=== PATIENT | female | born 1970 | race Caucasian/White ===

== ENCOUNTER 2017-12-13 22:24 | Inpatient (IN) | payer OTHER ==
[~2017-12-13] VITALS: Ht 162.6 cm; Wt 143.1 kg
[~2017-12-13 22:24] MED LIST: ABILIFY5 M1 PO; HYDRODIURIL 112.5 MG PO; LISINOPRIL-HCT1 EACH PO; LISINOPRIL10 MG PO; LOVASTATIN40 M1 PO; LOVASTATIN40 MG PO; MULTIVITAMIN1 TAB PO; PRISTIQ ER50 MG PO
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
[2017-12-13 23:04] LABS: ABSOLUTE BASOPHIL COUNT 0.1 /CUMM (0.0-0.2); ABSOLUTE EOSINOPHIL COUNT 0.1 /CUMM (0.0-0.7); ABSOLUTE GRANULOCYTE CT 5.6 /CUMM (1.4-6.5); ABSOLUTE LYMPH COUNT 3.6 /CUMM (1.2-3.4); ABSOLUTE MONOCYTE COUNT 0.9 /CUMM (0.10-0.60); EOSINOPHIL % 0.9 % (0-5); GRANULOCYTE % 54.6 % (42.2-75.2); HEMATOCRIT 47.7 % (37-47); MEAN CORPUSCULAR HGB 28.9 PG (27.0-31.0); MEAN CORPUSCULAR HGB CONC 32.7 G/DL (33.0-37.0); MEAN CORPUSCULAR VOLUME 88.3 FL (81.0-99.0); MEAN PLATELET VOLUME 8.3 FL (7.4-10.4); PLATELET COUNT 290 /CUMM (130-400); RBC DISTRIBUTION WIDTH 14.4 % (11.5-14.5); WHITE BLOOD CELL COUNT 10.3 /CUMM (4.8-10.8)
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
--- NOTE | 2017-12-14 09:23 | CT SCAN REPORT ---
EXAMINATION: CT HEAD WITHOUT CONTRAST CLINICAL INFORMATION: ALTERED MENTAL STATUS, OLFACTORY HALLUCINATIONS COMPARISON: None TECHNIQUE: Contiguous axial imaging was performed from the skull base to vertex without intravenous administration of contrast. DLP: 614.99 mGy-cm FINDINGS: There is no evidence of acute intracranial hemorrhage or territorial infarction. There is a small focus of low attenuation in the lateral right thalamus that may represent a chronic lacunar infarction. There is mild small vessel ischemic disease. No abnormal mass effect or midline shift is seen. [place] to white matter differentiation is well preserved. No extra-axial fluid collections are identified. The ventricles are normal in size. The osseous structures and soft tissues are normal. The mastoid air cells and visualized portions of the paranasal sinuses are well aerated. IMPRESSION: No acute intracranial pathology. There is a small focus of low attenuation in the lateral right thalamus that may represent a chronic lacunar infarction. There is mild small vessel ischemic disease.
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
[2017-12-14] MEDS ORDERED: ATORVASTATIN CA40 M1 PO (11:03)
[2017-12-14] MEDS ORDERED: LISINOPRIL20 M1 PO (11:03)
[2017-12-14] MEDS ORDERED: AMLODIPINE BESY10 M1 PO (11:03)
[2017-12-14] MEDS ORDERED: MIRTAZAPINE15 M2 PO (11:04)
[2017-12-14] MEDS ORDERED: VITAMIN D31000 UNI2 PO (11:05)
[2017-12-14 14:18] VITALS: BP 143/99
[2017-12-14] MEDS ORDERED: NORVASC10 M1 PO (15:48)
[2017-12-14] MEDS ORDERED: HYDROXYZINE HCL25 M3 PO (16:03)
--- NOTE | 2017-12-14 18:24 | History & Physical ---
General Information and HPI MD Statement: I have seen and personally examined SALMA SAXENA and documented this H&P. The patient is a 47 year old F who presented with a patient stated chief complaint of "I came in last night because I was concerned somebody was following me ". Source of Information: patient, EMS Exam Limitations: unable to give history History of Present Illness: 47-year-old white female was brought in by ambulance for increased paranoia. Patient feels like somebody is following her. She said she has been compliant with her medications. The symptoms have gotten worse in the last month having auditory hallucinations visual hallucinations and paranoia for all these reasons patient is admitted for evaluation and treatment Allergies/Medications Allergies: Uncoded Allergies: STEROID (EYES HURT PER PT 07/29/15) Home Med list Amlodipine Besylate 10 MG TABLET 1 TAB PO DAILY HEART (Reported) Aripiprazole (Abilify) 5 MG TABLET 6 TAB PO DAILY MENTAL HEALTH (Reported) Atorvastatin Calcium 40 MG TABLET 1 TAB PO DAILY CHOLESTEROL (Reported) Cholecalciferol (Vitamin D3) 1,000 UNIT TABLET 1 TAB PO DAILY VITAMIN SUPPORT (Reported) Desvenlafaxine Succinate (Pristiq ER) 50 MG TAB.ER.24H 1 TAB PO DAILY MENTAL HEALTH (Reported) Hydroxyzine HCl (hydrOXYzine HCl) 25 MG TABLET 1 TAB PO AT BEDTIME MENTAL HEALTH (Reported) Lisinopril 20 MG TABLET 1 TAB PO DAILY HEART (Reported) Mirtazapine 15 MG TABLET 1 TAB PO QPM SLEEP (Reported) Compliance With Home Meds: UNKNOWN Past History Travel History Traveled to [place] past 21 day No Medical History Neurological: NONE EENT: allergies Cardiovascular: hypertension, hyperlipidemia Respiratory: NONE Gastrointestinal: NONE Hepatic: NONE Renal: NONE Musculoskeletal: NONE Psychiatric: anxiety, depression, insomnia Endocrine: NONE Blood Disorders: NONE, 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 Home ETOH Use: denies use Illicit Drug Use: denies illicit drug use Review of Systems Review of Systems Constitutional: Reports: see HPI. Exam & Diagnostic Data Last 24 Hrs of Vital Signs/I&O Vital Signs Date Time Temp Pulse Resp B/P B/P Pulse O2 O2 Flow FiO2 Mean Ox Delivery Rate 12/14 1418 97.8 80 143/99 12/14 1354 98.6 83 18 143/94 98 Room Air Room Air 12/14 1206 98.1 83 19 160/95 97 Room Air 12/14 1050 97.8 90 18 138/90 96 Room Air Room Air 12/14 0933 98.1 99 18 144/89 12/14 0915 98.2 99 18 153/93 98 / 0653 98.1 99 18 144/89 98 Room Air 12/14 0207 98.6 104 20 169/89 96 Room Air 12/14 0010 98.4 100 18 145/78 98 Room Air 12/13 2234 98.2 97 19 157/94 96 Room Air 12/13 2233 Room Air Intake & Output 12/14 1600 12/14 0800 08 0000 Intake Total Output Total Balance Patient 315 lb 200 lb Weight Weight Estimated Measurement Method Physical Exam General Appearance Alert, Oriented X3, Cooperative, No Acute Distress Skin No Rashes, Hirtusism specially on face. HEENT PERRLA, EOMI, Mucous Membr. moist/pink Neck Supple, No JVD, No thryomegaly, +2 Carotid Pulse wo Bruit Lymphatic Axillary nl, Cervical nl Cardiovascular Regular Rate, No Murmurs Lungs Clear to Auscultation, Normal Air Movement Abdomen Soft, No Tenderness, No Hepatospenomegaly Neurological Exam Findings: Normal Gait, Normal Speech, Strength at 5/5 X4 Ext, Normal Tone, Sensation Intact, Cranial Nerves 3-12 NL, Reflexes 2+ Cranial Nerves II through XII: intact. Extremities No Edema, Normal Pulses Vascular Normal Pulses, Pulses Symmetrical Last 24 Hrs of Labs/Rancho: Laboratory Tests 12/13/17 2300: Urine Opiates Screen < 100, Methadone Screen < 40, Barbiturate Screen < 60, Ur Phencyclidine Scrn < 6.00, Amphetamines Screen < 100, U Benzodiazepines Scrn < 85, Urine Cocaine Screen < 50, Urine Cannabis Screen < 5.00, Urine Color SHOLA, Urine Clarity CLDY H, Urine pH 6.0, Ur Specific [place] >= 1.030, Urine Protein 30 H, Urine Ketones TRACE H, Urine Nitrite NEG, Urine Bilirubin NEG@ICTO, Urine Urobilinogen 1.0, Ur Leukocyte Esterase NEG, Ur Microscopic SEDIMENT EXAMINED, Urine RBC RARE, Urine WBC 3-5 H, Ur Epithelial Cells MOD H, Urine Bacteria MOD H, Urine Mucus FEW, Urine Hemoglobin NEG, Urine Glucose NEG 12/13/17 2257: Anion Gap 10, Estimated GFR > 60, BUN/Creatinine Ratio 21.4, Glucose 122 H, Hemoglobin A1c 6.5 H, Calcium 10.0, Total Bilirubin 0.6, AST 40 H, ALT 62 H, Alkaline Phosphatase 108, Total Protein 7.9, Albumin 4.6, Globulin 3.3, Albumin/ Globulin Ratio 1.4, Triglycerides 100, Cholesterol 158, LDL Cholesterol, Calc 90 , HDL Cholesterol 48, Cholesterol/HDL Ratio 3, Free T4 1.77, Total T3 1.65, TSH &T3 &Free T4 Intrp 4.810 H, Total Beta HCG NEGATIVE, CBC w Diff NO MAN DIFF REQ , RBC 5.40, MCV 88.3, MCH 28.9, MCHC 32.7 L, RDW 14.4, MPV 8.3, Gran % 54.6, Lymphocytes % 35.2, Monocytes % 8.3, Eosinophils % 0.9, Basophils % 1.0, Absolute Granulocytes 5.6, Absolute Lymphocytes 3.6 H, Absolute Monocytes 0.9 H, Absolute Eosinophils 0.1, Absolute Basophils 0.1, Serum Alcohol < 10.0 Assessment/Plan As Ranked By This Provider Problem List: 1. Paranoia 2. Obesity 3. Schizophrenia Miscellaneous Miscellaneous Documentation Attending Case Discussed With: Mauricio Varela MD Primary Care Physician: Musa Helton MD Patient sees these Specialists psych. Level of Patient Care: [facility] Consults Needed: Consulting Specialty: Psychiatry Consulting Physician: Dr. Varela Reason for Consult: paranoia schyzophrenia Attending MD Review Statement Attending Statement Attending MD Statement: examined this patient
[2017-12-14 19:32] VITALS: BP 150/87
[2017-12-15 08:11] VITALS: BP 116/49
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
[2017-12-15 18:12] VITALS: BP 114/82
[2017-12-15 19:36] VITALS: BP 148/87
[2017-12-16 07:49] VITALS: BP 110/82
--- NOTE | 2017-12-16 14:18 | CP SOUTH PROGRESS NOTE PSYCH ---
Psych (Inpt) Progress Note Progress Note Include the following elements, when applicable: Involvement in the active treatment of the patient with behavioral observations of the patient and the patient's response to the treatment. Review of the ongoing treatment process in the context of the treatment plan. Indication of how multi-disciplinary staff members are carrying out the treatment plan. Plans for future interventions and recommendations for revision of the treatment plan. Liaison with other physicians/providers. Progress Note: Case and treatment plan discussed in team meeting. Staff reports that the patient is denying SI. Isolated last evening. Patient seen at 1:51 pm. She was in group prior to meeting with me in office. Feeling a little better. Reports her anxiety levels have decreased. "When I came in, they were high." Affect is calm and blunted. Feeling less afraid. Reports her eyes feel much better. Sad 0/10. Anxiety maybe like 3/10. Denies feeling hopeless, helpless, worthless or guilty. Denies active and passive SI, HI, AH, and VH. [place] paranoid on admission but now "I don't know." Reports she slept very well. Appetite and energy are good. Tolerating medications well. Patient asked about head CT result. I informed her of small old lacunar infarct. I recommended she remain conscientious about blood pressure control. IMPRESSION: Slow progress. Continue present treatment plan. Anticipate likely discharge early next week.
--- NOTE | 2017-12-16 16:23 | SOCIAL WORKER PROG NOTE PSYCH ---
See Addendum Social Work Progress Note Progress Note Anitha's Sister Katerina called from [place]. She expressed her frustrations in trying to support Anitha from a distance. She explained that she typically comes to see her 3-4x's a year. While she visits she helps get Anitha's apartment clean and in order and she tries to assist her with things that are falling apart. Her Sister feels that she needs more assistance than she is getting. She is frustrated with the Cotton Broker and the wool broker that help handle the trust. She doesn't feel that Anitha's needs are being met and that Anitha just ends up firing people and or moving after getting paranoid of them. She really would like to see Anitha reconnect with the folks she had in place a year ago from [facility]. She would also like to see Anitha in a supported apartment. She is thinking of involuntary conservatorship. She may file. She is open to having a phone conference with Anitha tomorrow to discuss options. Her phone number is . Met with Anitha who was a little less guarded today and presented with a little more affect. She stated she had gone to a good group on coping skills today. She talked about how she needs to work on learning more coping skills to deal with things that come up. I talked with her about IOP and the benefits it could have for her. She said she would like to learn more about it, but didn't seem ready to commit to that today. She is open to having the phone conference tomorrow with her sister. We talked about her living situation and how she is feeling about going back next week. She reported that she has thought about it and thinks that she would benefit from a supervised apartment. She understands that would be a group home goal and not something that may happen right away. I told her I thought that would be great for her. She is willing to have a visiting nurse put in place daily. She may have to pay for that unless she can get [facility]. She is willing to call [facility] tomorrow to try and get it. She is a little somatic about some of her physical symptoms with her eyes aching. She would like an appt. with her eye doctor set up for when she leaves. She sees Dr. Jensen from [facility].
[2017-12-16 20:06] VITALS: BP 148/85
[2017-12-17 07:43] VITALS: BP 124/79
--- NOTE | 2017-12-17 14:44 | SOCIAL WORKER PROG NOTE PSYCH ---
Social Work Progress Note Progress Note The services requested require additional review. You will be contacted regarding the status of this request if further information is needed. An authorization decision will be made within the required timeframes and details of that decision may be found under the member's authorization history. Member Name Member ID Member Subscriber Name Subscriber ID SALMA SAXENA [id number] 1970 SALMA [id number] Pended Authorization # Client Authorization # Type of Request [id number] CONCURRENT Date of Admission/ Start of Services Requested From Submission Date 12/14/2017 12/17/2017 12/17/2017 Level of Service Type of Service Level of Care Type of Care INPATIENT/HLOC Mental Health Inpatient Inpatient [facility] - Inpatient Hospital Reason Code P76 Provider Name & Address Provider ID Provider Alternate ID NPI # for Authorization NIECY MACIAS [id number] N/A [address] [facility] [id number]
--- NOTE | 2017-12-17 17:29 | CP SOUTH PROGRESS NOTE PSYCH ---
Psych (Inpt) Progress Note Progress Note Include the following elements, when applicable: Involvement in the active treatment of the patient with behavioral observations of the patient and the patient's response to the treatment. Review of the ongoing treatment process in the context of the treatment plan. Indication of how multi-disciplinary staff members are carrying out the treatment plan. Plans for future interventions and recommendations for revision of the treatment plan. Liaison with other physicians/providers. Progress Note: Case and treatment plan discussed in team meeting. Staff reports that the patient is denying suicidal ideation. In bed a lot. Complained of some stiffness and discomfort. Attended some groups. Telephonic family meeting with half-sister was planned for 1 PM. Appearing disheveled. Patient seen at 10:23 AM with medical student. Patient was in group prior to meeting with us in office. Feels alright. Reports the depression has lifted. Reports having a chronic tight feeling in her left arm and she thinks it is due to her blood pressure. Affect is calm and blunted. Mood is happy. Rates sad mood maybe 3/10 and anxiety 2/10. Denies feeling hopeless, helpless, worthless or guilty. Denies active and passive suicidal ideation. Denies homicidal ideation. Denies auditory and visual hallucinations. Denies paranoia now. Reports she slept well. Reports appetite is back. Energy is good. Tolerating medications well, without complaint. IMPRESSION: Slow progress. Continue present treatment plan. Anticipate discharge to home on Wednesday. We are looking into the possibility of an IOP although patient apparently does not have active insurance. Monitor for extrapyramidal symptoms and need for any regular Cogentin. I have ordered repeat liver function tests and repeat TSH as a reflex.
--- NOTE | 2017-12-17 17:30 | SOCIAL WORKER PROG NOTE PSYCH ---
Social Work Progress Note Progress Note Introduced Anitha to Pranay Fowler ([employer] [employer] [employer] [facility] [facility] [place] Asked if she minded making a call to [facility] to try and obtain [employer] insurance? She said that was fine. She called, but got uncomfortable apparently with the financial questions they were asking for which she didn't know how to answer. They kept her application open and encouraged her to call back. When I saw Anitha later she said it was okay for me to get a signed release to speak with the [employer] that helps her with her trust. She signed a release for [employer] ([phone] ). We had a 1pm phone conference with her Sister Katerina in [place]. Anitha said she was feeling alot better today and that the depressive symptoms were diminishing. We talked about her attempt to get insurance and how I may need information from the assistant attorney general. Katerina had questions about what medications she is receiving. I verbally reported her current list of meds. We talked about IOP and the benefits to her going after inpatient. Anitha appears on board, but we need to determine the cost and if she can obtain insurance. She is also in agreement to have the visiting nurse. Katerina is interested in obtaining some information on programs that offer supervised housing. The conversation about conservatorship came up. Anitha had a negative view of what it meant due to it being explained by the assistant attorney general to her. She feels she would have no choice in anything. We tried to explain the concept as providing a safety net for her and that it can be seen as a supportive thing. Her Sister stated that she would like to offer to be her conservator on a voluntary basis if Anitha was willing. Anitha wanted to think about it. Called [employer] to discuss Anitha's finances. He was not aware that Anitha was without insurance again. I asked how that happens? He said Anitha has control over her money and what she spends it on. He said he helps her with her Trust and she also has an JONATHAN that she takes money out of that he is not part of. He said in total from her trust her taxable dividends were around 26, 000 and her taxes were filed. He offered to reach out to her property accountant or her patient financial coordinator if needed. I told him that I was going to call [facility] with her again on Wednesday and ask some additional questions about this situation.
[2017-12-17 20:35] VITALS: BP 135/80
[2017-12-18 08:03] VITALS: BP 116/78
--- NOTE | 2017-12-18 16:16 | CP SOUTH PROGRESS NOTE PSYCH ---
Psych (Inpt) Progress Note Progress Note Include the following elements, when applicable: Involvement in the active treatment of the patient with behavioral observations of the patient and the patient's response to the treatment. Review of the ongoing treatment process in the context of the treatment plan. Indication of how multi-disciplinary staff members are carrying out the treatment plan. Plans for future interventions and recommendations for revision of the treatment plan. Liaison with other physicians/providers. Progress Note: ECase discussed in AM with recharger. Anitha is overall stable. Visible in the unit. Cooperative with care. Uopn assesment reports feeling " better", Notices mood has improved, as well as appetite and sleep. Denies any SE related to medication regimen. Limited understanding of reasons of admit. MSE middle age female overweigth. Limited eye contact. Restricted affect. No SI/ HI. No AVH TP concrete.Cog AAox3 I limited J Fair. A/P 47 y/o WF. Schizoaffective Disorder Improving. Tolerating med.s COnsider alternatives for AD regimen pt is morbidly obese and mirtazapine is not optimal in such situation. Discharge when stable.
[2017-12-18 20:06] VITALS: BP 120/64
--- NOTE | 2017-12-19 14:28 | CP SOUTH PROGRESS NOTE PSYCH ---
Psych (Inpt) Progress Note Progress Note Include the following elements, when applicable: Involvement in the active treatment of the patient with behavioral observations of the patient and the patient's response to the treatment. Review of the ongoing treatment process in the context of the treatment plan. Indication of how multi-disciplinary staff members are carrying out the treatment plan. Plans for future interventions and recommendations for revision of the treatment plan. Liaison with other physicians/providers. Progress Note: Anitha reports she is feeling better " my mood is " lifted" some odd somatic complaints asking for an MRI or CT scan for her arm. Psychoeducation provided. Denies any hopeslessness or helplessness. No anxiety. Wants to do IOP . MSE MIddle age female. OW. cooperative odd affect. somatic complaints. No SI/HI. No AVH organized, linear Cog AAox3 I/J Limited A/P 47 y/o WF Schizoaffective Dx. MOst likely at baseline. Continue same tx plan.
[2017-12-19 19:54] VITALS: BP 114/57
[2017-12-20 08:00] VITALS: BP 111/74
[2017-12-20 09:33] VITALS: BP 111/74
[2017-12-20] MEDS ORDERED: HYDROCHLOROTH12.5 M3 PO (11:55)
[2017-12-20] MEDS ORDERED: XALATAN2.5 ML OD (11:57)
--- NOTE | 2017-12-20 12:07 | Patient Discharge Instructions ---
Psych Discharge Inst General Discharge Information Reason for Admission: Paranoia. Recently seen at [facility] ER and released. 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 Hx laser eye treatment Summary Tests/Major Procedures Lab ALT 62 U/L H 12/13/17 2257 ALT 57 U/L H 12/18/1742 AST 40 U/L H 12/13/177 AST 33 U/L 12/18/17 0642 BUN 15 mg/dL 12/13/17 2257 Carbon Dioxide 26 mmol/L 12/13/17 2257 Chloride 102 mmol/L 12/13/17 2257 Creatinine 0.7 mg/dL 12/13/17 225 Estimated GFR > 60 ml/min 12/13/17 225 Free T4 1.77 ng/dL 12/13/172256 Free T4 1.24 ng/dL 12/18/1742 Glucose 122 mg/dL H 12/13/172256 Hemoglobin A1c 6.5 % H 12/13/17 2257 Potassium 4.0 mmol/L 12/13/177 Sodium 137 mmol/L 12/13/17 2257 TSH &T3 &Free T4 Intrp 4.810 uIU/mL H 12/13/177 TSH &T3 &Free T4 Intrp 5.170 uIU/mL H 12/18/17 0642 Total Beta HCG NEGATIVE 12/13/172256 Total T3 1.65 ng/mL 12/13/177 Total T3 1.24 ng/mL 12/18/1742 Absolute Lymphocytes 3.6 /CUMM H 12/13/17 2257 Absolute Monocytes 0.9 /CUMM H 12/13/17 2257 Hct 47.7 % H 12/13/17 2257 Hgb 15.6 G/DL 12/13/17 2257 MCHC 32.7 G/DL L 12/13/17 2257 Plt Count 290 /CUMM 12/13/17 2257 WBC 10.3 /CUMM 12/13/17 2257 Serum Alcohol < 10.0 MG/DL 12/13/17 2257 Ur Epithelial Cells MANY H 12/16/17 1516 Ur Leukocyte Esterase SMALL H 12/16/17 1516 Urinalysis LIGHT H 12/16/17 1516 Urine Bacteria RARE H 12/16/17 1516 Urine Clarity HAZY H 12/16/17 1516 Urine Ketones NEG 12/16/17 1516 Urine Mucus RARE 12/16/17 1516 Urine Protein NEG MG/DL 12/16/17 1516 Urine WBC 1-3 /HPF H 12/16/17 1516 Patient : SALMA SAXENA Acct: [id number] DR: Nichole SIEGEL,Mauricio Birthdate: [birth year] Age/Sex: 47/F Unit: [id number] Loc: [place] [address] Status : ADM IN SPEC #: [id number] JEREMIAH: 12/19/17 STATUS: COMP RECD: 12/19/[address]: Giovanni Angelo MD SOURCE: URINE ROUT ENTR: 12/19/[address]: Sneha Sanford LCSWC: SOLEDAD Helton MD,Mauricio Triana MD ORDERED: URINE CULTURE COMMENT: SPKL,CARUSO Procedure Result > URINE CULTURE Final 12/20/17 MULTIPLE COLONY TYPES PRESENT CONSISTENT WITH CONTAMINATION. PLEASE RE-SUBMIT A CLEAN CATCH URINE IF SYMPTOMS PERSIST. Patient : GEORGE SAXENAAINE Acct: [id number] DR: Nichole SIEGEL,Mauricio Birthdate: [birth year] Age/Sex: 47/F Unit: [id number] Loc: [place] [address] Status : ADM IN SPEC #: [id number] JEREMIAH: 12/16/17 STATUS: COMP RECD: 12/16/[address]: Giovanni Angelo MD SOURCE: URINE ROUT ENTR: 12/16/[address]: Sneha Sanford LCSWC: SOLEDAD Helton MD,Mauricio Triana MD ORDERED: URINE CULTURE COMMENT: TRIO Procedure Result > URINE CULTURE Final 12/18/17 MULTIPLE COLONY TYPES PRESENT CONSISTENT WITH CONTAMINATION. PLEASE RE-SUBMIT A CLEAN CATCH URINE IF SYMPTOMS PERSIST. Patient : SALMA SAXENA Acct: [id number] DR: Nichole SIEGEL,Mauricio Birthdate: [birth year] Age/Sex: 47/F Unit: [id number] Loc: [place] [address] Status : ADM IN SPEC #: [id number] JEREMIAH: 12/15/17 STATUS: COMP RECD: 12/15/[address]: Giovanni Angelo MD SOURCE: URINE ROUT ENTR: 12/14/[address]: Musa Helton MD [facility]: Mauricio Aponte MD ORDERED: URINE CULTURE Procedure Result > URINE CULTURE Final 12/16/17 MULTIPLE COLONY TYPES PRESENT CONSISTENT WITH CONTAMINATION. PLEASE RE-SUBMIT A CLEAN CATCH URINE IF SYMPTOMS PERSIST. PATIENT: SALMA SAXENA PRESENT AGE: 47 PATIENT ACCOUNT NO: [id number] : [birth year] LOCATION: [facility] ORDERING PHYSICIAN: Tc Farias DO SERVICE DATE: 12/14/17 EXAM TYPE: CAT - CT HEAD WO IV CONTRAST EXAMINATION: CT HEAD WITHOUT CONTRAST CLINICAL INFORMATION: ALTERED MENTAL STATUS, OLFACTORY HALLUCINATIONS COMPARISON: None TECHNIQUE: Contiguous axial imaging was performed from the skull base to vertex without intravenous administration of contrast. DLP: 614.99 mGy-cm FINDINGS: There is no evidence of acute intracranial hemorrhage or territorial infarction. There is a small focus of low attenuation in the lateral right thalamus that may represent a chronic lacunar infarction. There is mild small vessel ischemic disease. No abnormal mass effect or midline shift is seen. [place] to white matter differentiation is well preserved. No extra-axial fluid collections are identified. The ventricles are normal in size. The osseous structures and soft tissues are normal. The mastoid air cells and visualized portions of the paranasal sinuses are well aerated. IMPRESSION: No acute intracranial pathology. There is a small focus of low attenuation in the lateral right thalamus that may represent a chronic lacunar infarction. There is mild small vessel ischemic disease. DICTATED BY: Aydin Rodriguez MD DATE/TIME DICTATED:12/14/17912 LOADING RACK SUPERVISOR:SHAGGY DATE/TIME TRANSCRIBED:12/14/17912 CONFIDENTIAL, DO NOT COPY WITHOUT APPROPRIATE AUTHORIZATION. <Electronically signed in Other Vendor System> SIGNED BY: Aydin Rodriguez MD 12/14/17922 EKG 12/14/17 showed sinus rhythm @ 79, non-specific intraventricular conduction delay, minor changes since previous tracing, abnormal EKG, QT 384, QTc 441. Studies Pending at [place]: None. Patient Instructions Contact Information Your Psychiatrist on [facility] was Nichole SIEGEL,Mauricio * If you are experiencing an emergency related to this hospitalization, please call [phone] to contact the treating psychiatrist or the psychiatrist-on- call. * To Request a copy of your medical records, please contact the Medical Records Department at [phone]. * To request results of studies pending at the time of discharge, please call [phone]. * Continue your Medications until directed to stop by your Healthcare provider. General Medication Information Please continue to take your new medications and your continued home medications , unless otherwise indicated on your discharge medication list, or unless directed by your MD or ASSISTED LIVING ADMINISTRATOR to stop them. Special Instructions Diet Regular Activity Normal Other Inst/Recommendations Please see Dr. Steiner for abnormal labs(liver, thyroid ) and abnormal EKG. - Tobacco Use Treatment Offered Post DC Medications Offered: Not Applicable Post DC Tobacco Treatment Plan: Not Applicable - EtOH/Drug Use D/O Treatment Offered Post DC Medications Offered: NA-No EtOH/Drug Use D/O Post DC EtOH/SubAbuse TX Plan: NA-No EtOH/Drug Use D/O Metabolic Screening () Not Applicable, patient not on a neuroleptic. OR () Patient on a neuroleptic(s) . Enter below results for Hemoglobin A1C, and lipid panel if obtained during the last 365 days. BMI: 54.100 Blood Pressure: 111/74 Laboratory Results From [facility] (If applicable): [x] Lab Cholesterol 158 MG/DL 12/13/17 2257 Cholesterol/HDL Ratio 3 % 12/13/17 225 HDL Cholesterol 48 mg/dL 12/13/17 2257 Hemoglobin A1c 6.5 % H 12/13/17 2257 LDL Cholesterol, Calc 90 mg/dL 12/13/17 2257 Triglycerides 100 mg/dL 12/13/17 2257 Advance Directives Does the Patient have Medical Advance Directives Yes/Copy not provided Does Pt have Psychiatric Advance Directives? No/Refused further info Does Patient have a Designated Surrogate Decision Maker: No Information About Psychiatric Advance Directives Provided? Refused Discharge Plan Post Hospital Treatment Plan: Dr. Powell for medication management. Dr. Steiner for general medical care.
--- NOTE | 2017-12-20 14:42 | SOCIAL WORKER PROG NOTE PSYCH ---
Social Work Progress Note Progress Note Called [facility] this morning early with Anitha. Spoke with a technical sales representative who told me that the Trust would count as income and they needed to know the yearly income amount. I shared what the tax attorney reported to me on Wednesday, but the terminology was a bit confusing as to what they are asking, so I told her we would need to call back. Anitha tried calling her tax attorney and senior financial, but didn't get a hold of them. I told Anitha that we may need to change the discharge plan a bit, due to the fact that it will cost her hundreds of dollars per week to go to [facility] if she has to self-pay. Anitha really didn't want to return to Dr. Powell, but was willing to have 1 session with him to terminate. She agreed to set up services here at [facility]. Called Dr. Powell. He would like to see Anitha tomorrow at 4:30pm. [facility] intake is scheduled for 12/23 10:45am and with Dr. Maier on 01/21 8am. Anitha and I tried to reach out to her sister Katerina to inform her of the plans, but she did not answer and voicemail was full. We called her Aunt Sharda and spoke with her. Updated her on the appts. and let her know VNS services through [facility] would cost 135.00 a visit. Anitha and her Aunt agreed to set up a nurse visit 2x's a week. Also scheduled a call for her to see Dr. Helton on 12/29. Anitha was scheduled to take a cab home. Looking forward to returning to her apartment today. She is in good spirits. Took a shower before leaving.
--- NOTE | 2017-12-20 16:20 | CP SOUTH PROGRESS NOTE PSYCH ---
Psych (Inpt) Progress Note Progress Note Include the following elements, when applicable: Involvement in the active treatment of the patient with behavioral observations of the patient and the patient's response to the treatment. Review of the ongoing treatment process in the context of the treatment plan. Indication of how multi-disciplinary staff members are carrying out the treatment plan. Plans for future interventions and recommendations for revision of the treatment plan. Liaison with other physicians/providers. Progress Note: Dr. Castro's notes reviewed. Case and treatment plan discussed in team meeting. Staff reports that the patient is denying suicidal ideation. Isolates at times. Pleasant. Patient seen at 10:25 a.m. She was in group prior to meeting with me in office. Reports feeling much better. Reports forgetfulness and states that Alzheimer's runs in the family, in maternal grandmother and mother. Patient continues to complain of left upper arm stiffness. I checked for cogwheeling. There is no apparent cogwheeling but both arms seemed a little stiff. I suggested patient follow up with primary care physician, Dr. Steiner, about discomfort in left upper arm. Affect is calm and blunted. Mood is okay. Rates sad mood 0/10 and anxiety maybe 2/10. Denies feeling hopeless, helpless, worthless or guilty. Denies active and passive suicidal ideation. Denies homicidal ideation. Denies auditory and visual hallucinations. Denies having paranoia in here. Reports she slept very well. Appetite is good. Energy is good. Tolerating medications well, without complaint. Feels ready and safe for discharge. IMPRESSION: Condition improved. Okay for discharge today to home with follow-up with psychiatrist Dr. Delgado Powell and with primary care physician, Dr. Steiner.
--- NOTE | 2017-12-20 16:28 | DISCHARGE SUMMARY REPORT-PSYCH ---
Visit Information Visit Dates/Diagnosis' Admission Date: 12/14/17 Discharge Date: 12/20/17 Reason for Admission: Paranoia. Recently seen at [facility] ER and released. 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 Hx laser eye treatment Hospital Course Significant Lab Findings: Lab ALT 62 U/L H 12/13/177 ALT 57 U/L H 12/18/1742 AST 40 U/L H 12/13/177 AST 33 U/L 12/18/1742 BUN 15 mg/dL 12/13/17 2257 Carbon Dioxide 26 mmol/L 12/13/17 2257 Chloride 102 mmol/L 12/13/17 225 Creatinine 0.7 mg/dL 12/13/17 225 Estimated GFR > 60 ml/min 12/13/172256 Free T4 1.77 ng/dL 12/13/172256 Free T4 1.24 ng/dL 12/18/1742 Glucose 122 mg/dL H 12/13/17 2257 Hemoglobin A1c 6.5 % H 12/13/177 Potassium 4.0 mmol/L 12/13/177 Sodium 137 mmol/L 12/13/17 2257 TSH &T3 &Free T4 Intrp 4.810 uIU/mL H 12/13/177 TSH &T3 &Free T4 Intrp 5.170 uIU/mL H 12/18/1742 Total Beta HCG NEGATIVE 12/13/172256 Total T3 1.65 ng/mL 12/13/177 Total T3 1.24 ng/mL 12/18/1742 Absolute Lymphocytes 3.6 /CUMM H 12/13/17 2257 Absolute Monocytes 0.9 /CUMM H 12/13/17 2257 Hct 47.7 % H 12/13/17 2257 Hgb 15.6 G/DL 12/13/17 2257 MCHC 32.7 G/DL L 12/13/17 2257 Plt Count 290 /CUMM 12/13/17 2257 WBC 10.3 /CUMM 12/13/17 2257 Serum Alcohol < 10.0 MG/DL 12/13/17 2257 Ur Epithelial Cells MANY H 12/16/17 1516 Ur Leukocyte Esterase SMALL H 12/16/17 1516 Urinalysis LIGHT H 12/16/17 1516 Urine Bacteria RARE H 12/16/17 1516 Urine Clarity HAZY H 12/16/17 1516 Urine Ketones NEG 12/16/17 1516 Urine Mucus RARE 12/16/17 1516 Urine Protein NEG MG/DL 12/16/17 1516 Urine WBC 1-3 /HPF H 12/16/17 1516 Patient : SALMA SAXENA Acct: [id number] DR: Nichole SIEGEL,Mauricio Birthdate: [birth year] Age/Sex: 47/F Unit: [id number] Loc: [place] [address] Status : ADM IN SPEC #: [id number] JEREMIAH: 12/19/17 STATUS: COMP RECD: 12/19/[address]: Giovanni Angelo MD SOURCE: URINE ROUT ENTR: 12/19/[address]: Sneha Sanford LCSWC: SOLEDAD Helton MD,Mauricio Triana MD ORDERED: URINE CULTURE COMMENT: SPKL,CARUSO Procedure Result > URINE CULTURE Final 12/20/17 MULTIPLE COLONY TYPES PRESENT CONSISTENT WITH CONTAMINATION. PLEASE RE-SUBMIT A CLEAN CATCH URINE IF SYMPTOMS PERSIST. Patient : SALMA SAXENA Acct: [id number] DR: Mauricio Varela MD Birthdate: [birth year] Age/Sex: 47/F Unit: [id number] Loc: [place] [address] Status : ADM IN SPEC #: [id number] JEREMIAH: 12/16/17 STATUS: COMP RECD: 12/16/171545 SUBM DR: Giovanni Angelo MD SOURCE: URINE ROUT ENTR: 12/16/171247 OTHR DR: Sneha Sanford LCSWC: SOLEDAD Helton MD,Mauricio Triana MD ORDERED: URINE CULTURE COMMENT: TRIO Procedure Result > URINE CULTURE Final 12/18/17 MULTIPLE COLONY TYPES PRESENT CONSISTENT WITH CONTAMINATION. PLEASE RE-SUBMIT A CLEAN CATCH URINE IF SYMPTOMS PERSIST. Patient : SALMA SAXENA Acct: [id number] DR: Mauricio Varela MD Birthdate: [birth year] Age/Sex: 47/F Unit: [id number] Loc: [facility] 01 Status : ADM IN SPEC #: [id number] JEREMIAH: 12/15/17 STATUS: COMP RECD: 12/15/[address]: Giovanni Angelo MD SOURCE: URINE ROUT ENTR: 12/14/[address]: Sunitha SIEGEL,Musa Hancock SPDESC: Mauricio Aponte MD ORDERED: URINE CULTURE Procedure Result > URINE CULTURE Final 12/16/17 MULTIPLE COLONY TYPES PRESENT CONSISTENT WITH CONTAMINATION. PLEASE RE-SUBMIT A CLEAN CATCH URINE IF SYMPTOMS PERSIST. PATIENT: SALMA SAXENA PRESENT AGE: 47 PATIENT ACCOUNT NO: [id number] : [birth year] LOCATION: [facility] ORDERING PHYSICIAN: Tc Farias DO SERVICE DATE: 12/14/17 EXAM TYPE: CAT - CT HEAD WO IV CONTRAST EXAMINATION: CT HEAD WITHOUT CONTRAST CLINICAL INFORMATION: ALTERED MENTAL STATUS, OLFACTORY HALLUCINATIONS COMPARISON: None TECHNIQUE: Contiguous axial imaging was performed from the skull base to vertex without intravenous administration of contrast. DLP: 614.99 mGy-cm FINDINGS: There is no evidence of acute intracranial hemorrhage or territorial infarction. There is a small focus of low attenuation in the lateral right thalamus that may represent a chronic lacunar infarction. There is mild small vessel ischemic disease. No abnormal mass effect or midline shift is seen. [place] to white matter differentiation is well preserved. No extra-axial fluid collections are identified. The ventricles are normal in size. The osseous structures and soft tissues are normal. The mastoid air cells and visualized portions of the paranasal sinuses are well aerated. IMPRESSION: No acute intracranial pathology. There is a small focus of low attenuation in the lateral right thalamus that may represent a chronic lacunar infarction. There is mild small vessel ischemic disease. DICTATED BY: Aydin Rodriguez MD DATE/TIME DICTATED:12/14/17912 LEAD RELAY TESTER:SHAGGY DATE/TIME TRANSCRIBED:12/14/17912 CONFIDENTIAL, DO NOT COPY WITHOUT APPROPRIATE AUTHORIZATION. <Electronically signed in Other Vendor System> SIGNED BY: Aydin Rodriguez MD 12/14/17922 EKG 12/14/17 showed sinus rhythm @ 79, non-specific intraventricular conduction delay, minor changes since previous tracing, abnormal EKG, QT 384, QTc 441. Course Complications: None. Consultations: The patient was seen by Dr. Giovanni Angelo for admission H&P. Please refer to his note for additional information. Allergies: Uncoded Allergies: STEROID (EYES HURT PER PT 07/29/15) Hospital Course/TX Response: The patient was monitored on the unit for safety, psychosis and mood disturbance. She participated in multi-modal treatments on the unit. All home medications were continued except Pristiq was discontinued, in case it had contributed to paranoia. Mood thus far remains stable. If depression returns, Pristiq may need to be re- introduced. Patient complained of left upper arm discomfort. She also complained of forgetfulness. Although she is Abilify, I elected not to start Cogentin, in case in might worsen her memory. The moonlighter questioned whether antidepressant should be changed from Remeron because the patient is overweight. This will be deferred to Dr. Powell. The patient has hirsutism. Dr. Powell informed me that this was already worked up. Paranoia appears to have remitted. Progress note from date of discharge, 12/20/17: "Dr. Castro's notes reviewed. Case and treatment plan discussed in team meeting. Staff reports that the patient is denying suicidal ideation. Isolates at times. Pleasant. Patient seen at 10:25 a.m. She was in group prior to meeting with me in office. Reports feeling much better. Reports forgetfulness and states that Alzheimer's runs in the family, in maternal grandmother and mother. Patient continues to complain of left upper arm stiffness. I checked for cogwheeling. There is no apparent cogwheeling but both arms seemed a little stiff. I suggested patient follow up with primary care physician, Dr. Steiner, about discomfort in left upper arm. Affect is calm and blunted. Mood is okay. Rates sad mood 0/10 and anxiety maybe 2/10. Denies feeling hopeless, helpless, worthless or guilty. Denies active and passive suicidal ideation. Denies homicidal ideation. Denies auditory and visual hallucinations. Denies having paranoia in here. Reports she slept very well. Appetite is good. Energy is good. Tolerating medications well, without complaint. Feels ready and safe for discharge. IMPRESSION: Condition improved. Okay for discharge today to home with follow-up with psychiatrist Dr. Delgado Powell and with primary care physician, Dr. Steiner." Discharge HBIPS - Tobacco Use Treatment Offered Post DC Medications Offered: Not Applicable Post DC Tobacco Treatment Plan: Not Applicable - EtOH/Drug Use D/O Treatment Offered Post DC Medications Offered: NA-No EtOH/Drug Use D/O Post DC EtOH/SubAbuse [place] Plan: NA-No EtOH/Drug Use D/O Metabolic Screening - Screen if on a Neuroleptic Medication - Metabolic screening should include: - Blood Pressure, BMI, Glucose or Hgb A1c, & a - Lipid profile from within the past 365 days. Metabolic Screening () Not Applicable, patient not on a neuroleptic. OR () Patient on a neuroleptic(s) . Enter below results for Hemoglobin A1C, and lipid panel if obtained during the last 365 days. BMI: 54.100 Blood Pressure: 111/74 Laboratory Results From [facility] E[facility] (If applicable): [x] Lab Cholesterol 158 MG/DL 12/13/17 2257 Cholesterol/HDL Ratio 3 % 12/13/17 2257 HDL Cholesterol 48 mg/dL 12/13/17 2257 Hemoglobin A1c 6.5 % H 12/13/17 2257 LDL Cholesterol, Calc 90 mg/dL 12/13/17 2257 Triglycerides 100 mg/dL 12/13/17 225 Discharge Instructions General Discharge Information Multiple Neuroleptics: ([x]) Not Applicable OR Document below three failed attempts at monotherapy, or a plan to taper to monotherapy, or augmentation of Clozapine. () Discharge Diet Regular Discharge Activity Normal DC Disposition: Returning to home. Referrals Ordered Referrals Provider Referral 12/21/17 For Groups: [Dr. Powell] Dr. Powell 12/21/17 4:30pm [address] [place] [address] Provider Referral 12/23/17 For Groups: Outpatient Psychiatry [facility] appt. Intake 12/23/17 10:45am [address] [place] [address] Call the [facility] office before appt. to find out the cost of the visit. Call [phone] Provider Referral 01/21/18 For Groups: Outpatient Psychiatry [facility] appt. with Dr Maier 01/21/18 [place] [address] Provider Referral For Groups: [Dr. Helton] Dr. Musa Helton appt. 12/29 11:30am Internal medicine [address] [address] [phone] Provider Referral For Groups: [[facility]] Visiting Nurse Services with [facility] to start 12/21/17 2x's weekly for med administration and vitals Prescriptions Stop taking the following medications: Desvenlafaxine Succinate (Pristiq ER) 50 MG TAB.ER.24H ORAL DAILY Continue taking these medications: Aripiprazole (Abilify) 5 MG TABLET 6 Tablet ORAL DAILY Comments: Last Taken:12/19/17 Time:9pm Atorvastatin Calcium (Atorvastatin Calcium) 40 MG TABLET 1 Tablet ORAL DAILY Qty = 30 Comments: Last Taken:12/19/17 Time:5pm Amlodipine Besylate (Amlodipine Besylate) 10 MG TABLET 1 Tablet ORAL DAILY Qty = 30 Comments: Last Taken:12/20/17 Time:8am Lisinopril (Lisinopril) 20 MG TABLET 1 Tablet ORAL DAILY Qty = 30 Comments: Last Taken:12/20/17 Time:8am Mirtazapine (Mirtazapine) 15 MG TABLET 1 Tablet ORAL Every night Qty = 30 Comments: Last Taken:12/19/17 Time:9pm Cholecalciferol (Vitamin D3) 1,000 UNIT TABLET 1 Tablet ORAL DAILY Hydroxyzine HCl (hydrOXYzine HCl) 25 MG TABLET 1 Tablet ORAL AT BEDTIME Comments: not taken in hospital Hydrochlorothiazide (Hydrochlorothiazide) 12.5 MG CAPSULE 1 Capsule ORAL DAILY Comments: Last Taken:12/20/17 Time:8am Latanoprost (Xalatan) 0.005 % DROPS 1 Drop Right Eye AT BEDTIME Comments: Last Taken:12/19/17 Time:10pm Other Inst/Recommendations Please see Dr. Steiner for abnormal labs(liver, thyroid ) and abnormal EKG. Studies Pending at Discharge None. Copies To: Dr. Delgado Powell; Sunitha SIEGEL,Musa Hancock
--- NOTE | 2017-12-20 16:58 | SOCIAL WORKER PROG NOTE PSYCH ---
Social Work Progress Note Faxed Referral(s) 1 Referred To: [facility] Transition of Care Documents sent: Health Summary, W10 Faxed to: Intake Fax #: [phone] Faxed by: Sneha Sanford Date faxed: 12/20/17 Time Faxed: [phone] Faxed Referral(s) 2 Referred To: [facility] Care Documents sent: Health Summary, W10 Faxed to: [facility] Fax #: [phone] Faxed by: Sneha Sanford Date faxed: 12/20/17 Time Faxed: [phone]
== END 2017-12-20 16:44 | DRG 885 ==
LOC: ERH 22:24 → ERHI 12-14 10:28 → CP SOUTH 12-14 10:28 → ENTRNSPT 12-14 13:50 → EDTRNSPT 12-14 13:58 → EDTRNSPTSTS 12-14 13:58 → CMPTRNSPT 12-14 14:06 → CP SOUTH 12-14 14:07
PROVIDERS: Emergency Medicine
DX: F25.9 Schizoaffective disorder, unspecified (principal); I10 Essential (primary) hypertension; E78.5 Hyperlipidemia, unspecified; L68.0 Hirsutism; Z85.6 Personal history of leukemia; Z88.8 Allergy status to other drugs, medicaments and biological substances; F32.9 Major depressive disorder, single episode, unspecified; F41.9 Anxiety disorder, unspecified; E66.9 Obesity, unspecified
CPT/HCPCS: 36415; 80307; 81001; 87086; 93005; 93010; G0480; J0515; J1630